=== PATIENT | female | born 1995 | race Caucasian/White ===

== ENCOUNTER → 2021-02-15 13:43 | Outpatient (BNVA) | payer OTHER, SELFPAY | PROVIDERS: Visit Provider Nurse Practitioner Family | DX: Z20.822 Contact with and (suspected) exposure to COVID-19 (principal) | CPT/HCPCS: 87635 ==

== ENCOUNTER → 2024-10-18 08:33 | Outpatient (BNVA) | payer OTHER, SELFPAY | PROVIDERS: PCP Family Medicine; Visit Provider Family Medicine | DX: R25.3 Fasciculation (principal) | CPT/HCPCS: 82085; 82550; 83735; 86140 ==

== ENCOUNTER 2024-11-05 12:14 | Outpatient (CLI) | payer OTHER, SELFPAY ==
[2024-11-05 13:19] LABS: Estmated Average Glucose 103; Hemoglobin A1C 5.2 % (4.0-6.0)
[2024-11-05 13:44] LABS: Vitamin B12 433 pg/mL (232-1245)
[2024-11-07 05:54] LABS: COMPLEMENT COMPONENT C3C 127 mg/dL (83-193); COMPLEMENT COMPONENT C4C 19 mg/dL (15-57)
[2024-11-08 14:37] LABS: COMPLEMENT, TOTAL (CH50) 52 U/mL (31-60)
[2024-11-08 14:39] LABS: RPR w(Moniotor) w/REFL Titer NON-REACTIVE (NON-REACTIVE)
[2024-11-08 16:04] LABS: CENTROMERE B ANTIBODY <1.0 NEG AI (<1.0 NEG); JO-1 ANTIBODY <1.0 NEG AI (<1.0 NEG); RNP ANTIBODY <1.0 NEG AI (<1.0 NEG); SCL-70 ANTIBODY <1.0 NEG AI (<1.0 NEG); SS-B <1.0 NEG AI (<1.0 NEG)
[2024-11-08 17:14] LABS: THYROID PEROXIDASE ANTIBODIES 1 IU/mL (<9)
[2024-11-10 22:35] LABS: DNA AB (DS) CRITHIDIA,IFA NEGATIVE (NEGATIVE)
== END 2024-11-05 12:15 | disposition home or self-care (01) ==
LOC: LAB 12:16
PROVIDERS: PCP Family Medicine; Visit Provider Psychiatry & Neurology Neurology
DX: R25.3 Fasciculation (principal); E55.9 Vitamin D deficiency, unspecified; E53.8 Deficiency of other specified B group vitamins
CPT/HCPCS: 36415; 82306; 82525; 82607; 82746; 83036; 83921; 85651; 86140; 86160; 86162; 86235; 86255; 86334; 86376; 86431; 86592; 86780